=== PATIENT | male | born 1995 | race Caucasian/White ===

== ENCOUNTER 2018-09-27 21:07 | Emergency (ER) | payer OTHER ==
[2018-09-27] MEDS ORDERED: LIDOCAINE 1% INJ-PF (10 MG/ML) 30 ML SDV INJ ONE (22:38)
[2018-09-27] MEDS ORDERED: HYDROCODONE/ACETAMINOPHEN 5-325 MG TABLET PO ONE (22:38)
--- NOTE | 2018-09-27 22:41 | ER Document Report ---
ED Skin Rash/Insect Bite/Abscs - General Chief Complaint: Abscess Stated Complaint: ABSESS ON BUTT Time Seen by Provider: 09/27/18 21:50 Primary Care Provider: SHEMAR FLORES MD [COMMUNITY BASED STAFF] - Follow up as needed Mode of Arrival: Ambulatory Information source: Patient TRAVEL OUTSIDE OF THE [place] IN LAST 30 DAYS: No - HPI Patient complains to provider of: Tender/swollen area Notes: Patient here with complaints of buttock abscess. The patient states that he fell a week or so ago was somewhat sore in this area. He was seen at urgent care and diagnosed with a pilonidal abscess and was placed on Bactrim. Has been on Bactrim for about just over 24 hours. States that the right side of his gluteal cleft is now more swollen and more tender. No fevers. No history of this in the past. He has some nausea, but denies any vomiting, diarrhea. No chest pain or shortness of breath. Pain is constant, moderate, worse with sitting on the area or touching the area, better when he is lying on his stomach. He denies any history of abscess in the past. No history of diabetes. No other specific complaints at this time. Past Medical History - Social History Smoking Status: Current Every Day Smoker Frequency of alcohol use: None Drug Abuse: None Family History: Reviewed & Not Pertinent Patient has suicidal ideation: No Patient has homicidal ideation: No Renal/ Medical History: Denies: Hx Peritoneal Dialysis Review of Systems - Review of Systems -: Yes All other systems reviewed and negative Physical Exam - Vital signs Vitals: Temp Pulse Resp BP Pulse Ox 98.6 F 115 H 20 129/94 H 98 09/27/18 21:19 09/27/18 21:19 09/27/18 21:19 09/27/18 21:19 09/27/18 21:19 - Notes Notes: GENERAL: alert, cooperative, nontoxic, no distress. HEAD: normocephalic, atraumatic EYES: conjunctiva pink without discharge, no external redness or swelling. EARS: no external swelling, no external redness NOSE: atraumatic, no external swelling MOUTH/THROAT: mucous membranes moist and pink NECK: soft, supple, full range of motion, no meningismus. CHEST: no distress, lungs clear and equal throughout. No wheezing, rales, rhonchi. CARDIAC: regular rate and rhythm, no murmur, normal capillary refill, normal pulses. BACK: full range of motion, no CVA tenderness. EXTREMITIES: full range of motion of all extremities. No redness, no swelling. NEURO: alert and oriented 3, no focal deficits, full range of motion of all extremities. PYSCH: appropriate mood, affect. Patient is cooperative. SKIN: pink, warm, dry, no rash. 3 cm fluctuant abscess with mild surrounding erythema to the right gluteal cleft superior aspect. Tenderness to palpation. No rectal abscess identified. Course - Re-evaluation Re-evalutation: 09/27/18 23:25 Patient is nontoxic-appearing stable vitals. Patient here with what appears to be a pilonidal abscess to the right gluteal cleft. Patient is nontoxic, afebrile and appears well otherwise. Was able to drain a large amount of purulent drainage from this area. He is currently taking Bactrim which I do believe would be an appropriate antibiotic for this case. Patient will be discharged home with a prescription for [place], instructions to continue taking the Bactrim, apply warm compresses. He will be given a referral to surgery. Follow-up with surgeon at the next available appointment. Follow-up sooner for worsening pain, fever, redness, drainage, any further concerns. - Vital Signs Vital signs: Temp Pulse Resp BP Pulse Ox 98.6 F 115 H 20 129/94 H 98 09/27/18 21:19 09/27/18 21:19 09/27/18 21:19 09/27/18 21:19 09/27/18 21:19 Procedures - Incision and Drainage Pilonidal cyst Type: Simple Anesthetic type: 1% Lidocaine Blade size: 11 I&D procedure: Betadine prep applied, Sterile dressing applied Incision Method: Incision made by scalpel Amount/type of drainage: Large amount of purulent/bloody drainage. Notes: 09/27/18 23:27 Abscess was probed to break up loculations. Patient tolerated procedure well with no immediate comp occasions. Discharge - Discharge Clinical Impression: Pilonidal abscess of cleft Condition: Stable Disposition: HOME, SELF-CARE Instructions: Abscess ([facility]), Post Incision and Drainage Additional Instructions: Take medication as prescribed. Continue to take your antibiotics were given at your previous visit. Drink lots of fluids. Apply warm compresses to the sore area. Follow-up for increasing pain, fever, redness, drainage, any further concerns. Prescriptions: Hydrocodone/Acetaminophen [[place]ward 5-325 mg Tablet] 2 tab PO Q6H PRN #15 tab PRN Reason: Forms: Elevated Blood Pressure, Smoking Cessation Education, Return to School, Return to Work Referrals: SHEMAR FLORES MD [COMMUNITY BASED STAFF] - Follow up as needed [facility] [Provider Group] - Follow up as needed SHABNAM OTERO MD [ACTIVE STAFF] - Follow up as needed
[2018-09-27 23:49] VITALS: BP 155/85
== END 2018-09-27 23:49 | disposition home or self-care (01) ==
LOC: ER 21:07
DX: L05.01 Pilonidal cyst with abscess (principal); F17.200 Nicotine dependence, unspecified, uncomplicated
CPT/HCPCS: 99283